=== PATIENT | male | born 1960 | race Hispanic/Latino ===

== ENCOUNTER 2017-06-05 19:07 | Emergency (ER) | payer SELFPAY ==
[2017-06-05] MEDS ORDERED: ATIVAN PO ONE (19:44)
--- NOTE | 2017-06-05 20:36 | Emergency Department Report ---
ED General Adult HPI - General Chief complaint: High BP Stated complaint: HIGH BP Time Seen by Provider: 06/05/17 19:43 Source: patient, EMS Mode of arrival: Stretcher Limitations: No Limitations - History of Present Illness Initial comments: 57 yo male with PMHX of CAD, HTN, quadruple bypass presenting to ED complaining of hypertension. Patient states he was at a job interview and he started having tremors in his upper and lower extremities and stuttering of his speech. He was awake and alert throughout these symptoms. Patient states that his happened in the past secondary to being really nervous and stressed out. A bystander had a blood pressure cuff and measured patient blood pressure systolic was 200. At that time patient was convinced to seek medical attention. When EMS arrived on the scene patient did have elevated blood pressure and other vitals were stable. Patient denies ever having: Chest pain, headache, neck pain, shortness of breath, dyspnea on exertion. Now that his job interview is complete his shaking and stuttering has remitted, he states he really wanted that job and got nervous during the interview because he is currently not employed. Patient states he is compliant with all his antihypertensives. -: Sudden Severity scale (0 -10): 0 Consistency: now resolved Worsens with: none Associated Symptoms: denies: confusion, chest pain, cough, diaphoresis, fever/ chills, headaches, malaise, nausea/vomiting, shortness of breath, syncope, weakness Treatments Prior to Arrival: none - Related Data Home Medications Medication Instructions Recorded Confirmed Last Taken Lisinopril [Zestril TAB] 40 mg PO QDAY 06/05/17 06/05/17 06/04/17 08:00 Metoprolol [Lopressor] 100 mg PO BID 06/05/17 06/05/17 06/04/17 08:00 Allergies Allergy/AdvReac Type Severity Reaction Status Date / Time No Known Allergies Allergy Verified 06/05/17 19:38 ED Review of Systems ROS: Stated complaint: HIGH BP Other details as noted in HPI Constitutional: denies: chills, fever Eyes: denies: eye pain, eye discharge, vision change ENT: denies: ear pain, throat pain Respiratory: denies: cough, shortness of breath, wheezing Cardiovascular: denies: chest pain, palpitations Endocrine: no symptoms reported Gastrointestinal: denies: abdominal pain, nausea, diarrhea Genitourinary: denies: urgency, dysuria Musculoskeletal: denies: back pain, joint swelling, arthralgia Skin: denies: rash, lesions Neurological: denies: headache, weakness, paresthesias Psychiatric: denies: anxiety, depression Hematological/Lymphatic: denies: easy bleeding, easy bruising ED Past Medical Hx - Past Medical History Previous Medical History?: Yes Hx Hypertension: Yes Additional medical history: Hyperlipidemia - Surgical History Past Surgical History?: Yes Additional Surgical History: Bypass - Social History Smoking Status: Never Smoker Substance Use Type: None - Medications Home Medications: Home Medications Medication Instructions Recorded Confirmed Last Taken Type Lisinopril [Zestril TAB] 40 mg PO QDAY 06/05/17 06/05/17 06/04/17 08:00 History Metoprolol [Lopressor] 100 mg PO BID 06/05/17 06/05/17 06/04/17 08:00 History ED Physical Exam - General Limitations: No Limitations General appearance: alert, in no apparent distress - Head Head exam: Present: atraumatic, normocephalic - Eye Eye exam: Present: normal appearance - ENT ENT exam: Present: mucous membranes moist - Neck Neck exam: Present: normal inspection - Respiratory Respiratory exam: Present: normal lung sounds bilaterally. Absent: respiratory distress - Cardiovascular Cardiovascular Exam: Present: regular rate, normal rhythm. Absent: systolic murmur, diastolic murmur, rubs, gallop - GI/Abdominal GI/Abdominal exam: Present: soft, normal bowel sounds - Rectal Rectal exam: Present: deferred - Extremities Exam Extremities exam: Present: normal inspection - Back Exam Back exam: Present: normal inspection - Neurological Exam Neurological exam: Present: alert, oriented X3, CN II-XII intact, normal gait, other (cerebellar exam normal, NIHSS: 0). Absent: motor sensory deficit (5 out of 5 upper and bilateral extremity strength, 5 out of 5 bilateral lower extremity strength) - Psychiatric Psychiatric exam: Present: normal affect, normal mood, anxious. Absent: depressed, agitated, flat affect, manic, homicidal ideation, suicidal ideation - Skin Skin exam: Present: warm, dry, intact, normal color. Absent: rash ED Course Vital Signs 06/05/17 06/05/17 06/05/17 19:32 19:40 22:32 Temperature 98.8 F Pulse Rate 78 80 Respiratory 16 16 20 Rate Blood Pressure 145/87 Blood Pressure 145/87 143/82 [Right] O2 Sat by Pulse 94 100 Oximetry - Reevaluation(s) Reevaluation #1: 06/05/17 21:33 pt resting comfortably ED Medical Decision Making - Lab Data Result diagrams: 06/05/17 20:32 06/05/17 20:32 - EKG Data -: EKG Interpreted by Me Rate: normal (65 atrial fib with PVC, RBBB) - Radiology Data Radiology results: image reviewed interpreted by me: CXR: no acute findings. - Medical Decision Making 57 yo male with past medical history of hypertension, coronary artery disease, quadruple bypass presenting to ED with anxiety reaction. Likely the symptoms were caused secondary to patient's anxiety during his job interview. Per patient, this interview is very important to him and he admits he felt anxious and started having upper and lower extremity jerking was stuttering of speech and elevated high blood pressure. I have low suspicion for ACS, dissection, PE , acute psychotic break. At this time patient is calm and agrees to discharge home and having outpatient workup for his anxiety and hypertension. Critical Care Time: No Critical care attestation.: If time is entered above; I have spent that time in minutes in the direct care of this critically ill patient, excluding procedure time. ED Disposition Clinical Impression: Anxiety reaction, Hypertension Disposition: DC-01 TO HOME OR SELFCARE Is pt being admited?: No Does the pt Need Aspirin: No Condition: Stable Instructions: Generalized Anxiety Disorder (ED), Hypertension (ED) Referrals: PRIMARY MD DORA [Primary Care Provider] - 3-5 Days NADJA VERGARA MD [Staff Physician] - 3-5 Days Forms: Work/School Release Form(ED)
[2017-06-05 20:49] LABS: Basophils % (Auto) 0.5 % (0.0-1.8); Eosinophils % (Auto) 0.1 % (0.0-4.3); Hematocrit 46.8 % (35.5-45.6); Hemoglobin 15.6 gm/dl (11.8-15.2); Mean Corpuscular HGB Conc 34 % (32-34); Mean Corpuscular Hemoglobin 33 pg (28-32); Mean Corpuscular Volume 97 fl (84-94); Platelet Count 146 K/mm3 (140-440); Red Blood Count 4.81 M/mm3 (3.65-5.03); Red Cell Distribution Width 13.3 % (13.2-15.2); White Blood Count 6.2 K/mm3 (4.5-11.0)
[2017-06-05 21:01] LABS: INR 0.97 (0.87-1.13)
[2017-06-05 21:02] LABS: Partial Thromboplastin Time 30.4 Sec. (24.2-36.6)
[2017-06-05 21:08] LABS: Alanine Aminotransferase 82 units/L (7-56); Albumin 4.3 g/dL (3.9-5); Albumin/Globulin Ratio 1.3 %; Alkaline Phosphatase 89 units/L (35-129); Anion Gap 27 mmol/L; Blood Urea Nitrogen 7 mg/dL (9-20); Carbon Dioxide 21 mmol/L (22-30); Chloride 95.2 mmol/L (98-107); Glucose 162 mg/dL (75-100); Potassium 4.3 mmol/L (3.6-5.0); Sodium 139 mmol/L (137-145); Total Protein 7.6 g/dL (6.3-8.2)
[2017-06-05 22:32] VITALS: BP 143/82
--- NOTE | 2017-06-06 07:54 | XRay Report ---
Portable chest: Cough. There are coronary bypass changes with a normal sized heart. There is no vascular congestion. The lungs are clear and well aerated. No prior study for comparison. Impression: No acute findings.
== END 2017-06-05 22:33 | disposition home or self-care (01) ==
LOC: ED 19:07
DX: F41.1 Generalized anxiety disorder (principal); I10 Essential (primary) hypertension; E78.5 Hyperlipidemia, unspecified
CPT/HCPCS: 36415; 71020; 80053; 83880; 84484; 85025; 85610; 85730; 93005; 93010